=== PATIENT | female | born 1995 ===

== ENCOUNTER 2018-09-23 16:27 | Emergency (ER) | payer MEDICAID, OTHER ==
[~2018-09-23] VITALS: Ht 160 cm; Wt 69.4 kg
--- NOTE | 2018-09-23 16:43 | NUR ---
PT TRANSFERED TO [facility] IN STABLE CONDITION.
--- NOTE | 2018-09-23 16:43 | NUR ---
Ezequiel hand in [facility] - 09/23/18 at 1644 by MONICO PT TRANSFERED TO [facility] IN STABLE CONDITION.
[2018-09-23 16:45] LABS: *BILIRUBIN,URIN NEGATIVE (NEGATIVE); *BLOOD, URINE 1+ (NEGATIVE); *COLOR,URINE YELLOW (YELLOW); *KETONES,URINE NEGATIVE (NEGATIVE); *PROTEIN,URINE NEGATIVE (NEGATIVE); *UROBILINOGEN,URINE 0.2 E.U./dl (NORMAL); LEUKOCYTE ESTERASE ,URINE NEGATIVE (NEGATIVE); NITRITE, URINE NEGATIVE (NEGATIVE); UGLUCOSE NEGATIVE (NEGATIVE)
[2018-09-23] MEDS ORDERED: IV NORMAL SALINE 1000 ML BAG IV ONE (16:45)
[2018-09-23 16:49] LABS: *URINE HCG, QUAL NEGATIVE (NEGATIVE)
[2018-09-23 16:52] LABS: *CLARITY,URINE SLIGHTLY HAZY (CLEAR)
[2018-09-23 16:53] LABS: BACTERIA,URINE FEW /HPF (NONE SEEN); MUCUS,URINE FEW /LPF (0-FEW); SQUAMOUS EPITHELIAL CELL,UR MODERATE /HPF (NONE SEEN); WBC,URINE 0-3 /HPF (0-3)
[2018-09-23 16:56] LABS: BASOPHILS # (AUTO) 0.1 K/uL (0.0-8.0); BASOPHILS % (AUTO) 1.2 % (0.0-2.0); EOSINOPHILS # (AUTO) 0.2 K/uL (0.0-0.7); EOSINOPHILS % (AUTO) 3.1 % (0.0-7.0); HEMOGLOBIN 13.4 g/dL (10.9-14.3); LYMPHOCYTES # (AUTO) 2.4 K/uL (20.0-40.0); LYMPHOCYTES % (AUTO) 33.6 % (20.5-51.5); MEAN CORPUSCULAR HEMOGLOBIN 31.7 uug (24.7-32.8); MEAN CORPUSCULAR HGB CONC 35 g/dL (32.3-35.6); MEAN CORPUSCULAR VOLUME 90.2 fL (75.5-95.3); MONOCYTES # (AUTO) 0.7 K/uL (2.0-10.0); MONOCYTES % (AUTO) 10.1 % (0.0-11.0); NEUTROPHILS # (AUTO) 3.7 K/uL (1.8-8.9); PLATELET COUNT (AUTO) 240 K/uL (179-408); RED BLOOD CELL COUNT(AUTO) 4.22 MIL/uL (3.63-4.92); WHITE BLOOD COUNT (AUTO) 7.2 K/uL (3.8-11.8)
[2018-09-23 17:07] LABS: CREATININE 0.7 mg/dL (0.6-1.3); POTASSIUM 3.6 mmol/L (3.5-5.1)
[2018-09-23 17:13] LABS: BILIRUBIN,DIRECT 0.2 mg/dL (0.0-0.2); BILIRUBIN,TOTAL 0.9 mg/dL (0.2-1.0); TOTAL PROTEIN, SERUM 8.3 g/dL (6.4-8.2)
--- NOTE | 2018-09-23 17:58 | NUR ---
Patient discharged to home in stable conditon. Written and verbal after care instructions given. Patient verbalizes understanding of instructions.
== END 2018-09-23 18:00 | disposition home or self-care (01) ==
LOC: ER 16:29
DX: R10.31 Right lower quadrant pain (principal); R10.32 Left lower quadrant pain
CPT/HCPCS: 36415; 83690; 84703; 85025; A4663; J7030

== ENCOUNTER 2018-12-14 21:11 | Emergency (ER) | payer OTHER ==
[~2018-12-14] VITALS: Ht 160 cm; Wt 69.4 kg
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
[2018-12-14] MEDS ORDERED: HYDROCODONE/APAP 5-325MG TABLET ONE (21:57)
[2018-12-14] MEDS ORDERED: ONDANSETRON ODT 4 MG TAB.RAPDIS ONE (21:57)
[2018-12-14] MEDS ORDERED: HYDROCODONE/APAP 5-325MG TABLET PO ONE (22:00)
[2018-12-14] MEDS ORDERED: ONDANSETRON ODT 4 MG TAB.RAPDIS SL ONE (22:00)
--- NOTE | 2018-12-14 23:33 | NUR ---
Patient discharged to home in stable conditon. Written and verbal after care instructions given. Patient verbalizes understanding of instructions. Pt ambulated out of ER in steady gait with boyfriend who will drive home. All belongings with pt. VSS. NAD noted.
[2018-12-14 23:34] VITALS: BP 124/89
== END 2018-12-14 23:35 | disposition home or self-care (01) ==
LOC: ER 21:13
DX: S06.0X0A Concussion without loss of consciousness, initial encounter (principal); V49.9XXA Car occupant (driver) (passenger) injured in unspecified traffic accident, initial encounter; Y93.89 Activity, other specified; Y92.89 Other specified places as the place of occurrence of the external cause; Y99.8 Other external cause status
CPT/HCPCS: 70450; A4663; Q0162

== ENCOUNTER 2019-06-29 10:45 | Emergency (ER) | payer OTHER ==
[~2019-06-29] VITALS: Ht 160 cm; Wt 70.8 kg
--- NOTE | 2019-06-29 10:47 | NUR ---
VANDANA MAHARAJ AT BEDSIDE FOR MSE.
[2019-06-29 10:59] LABS: *BILIRUBIN,URIN NEGATIVE (NEGATIVE); *BLOOD, URINE 3+ (NEGATIVE); *CLARITY,URINE CLEAR (CLEAR); *COLOR,URINE Orange (YELLOW); *KETONES,URINE NEGATIVE (NEGATIVE); LEUKOCYTE ESTERASE ,URINE TRACE (NEGATIVE); NITRITE, URINE POSITIVE (NEGATIVE); PH,URINE 7.5 (5.0-8.0); UGLUCOSE TRACE (NEGATIVE)
--- NOTE | 2019-06-29 10:59 | NUR ---
Patient discharged to home in stable conditon. Written and verbal after care instructions given. Patient verbalizes understanding of instructions. [facility] [place] W/ PT.
[2019-06-29 11:00] VITALS: BP 123/58
[2019-06-29 11:02] LABS: *URINE HCG, QUAL NEGATIVE (NEGATIVE)
[2019-06-29 11:08] LABS: RBC,URINE TNTC /HPF (0-3)
[2019-06-29 11:09] LABS: WBC,URINE 20-50 /HPF (0-3)
[2019-06-29 11:10] LABS: BACTERIA,URINE FEW /HPF (NONE SEEN)
[2019-06-29 11:11] LABS: MUCUS,URINE FEW /LPF (0-FEW); SQUAMOUS EPITHELIAL CELL,UR MODERATE /HPF (NONE SEEN)
== END 2019-06-29 11:03 | disposition home or self-care (01) ==
LOC: ER 10:45
DX: N39.0 Urinary tract infection, site not specified (principal)
CPT/HCPCS: 84703; 87086; A4663

== ENCOUNTER 2022-10-20 11:46 | Emergency (ER) | payer OTHER ==
[~2022-10-20] VITALS: Ht 160 cm; Wt 73.5 kg
[2022-10-20] MEDS ORDERED: PROCHLORPERAZINE EDISYLATE 10 MG/2 ML VIAL IV ONE (12:15)
[2022-10-20] MEDS ORDERED: KETOROLAC TROMETHAMINE 30 MG INJ IVP ONE (12:15)
[2022-10-20] MEDS ORDERED: IV NORMAL SALINE 1000 ML BAG IV ONE (12:15)
[2022-10-20] MEDS ORDERED: PROCHLORPERAZINE EDISYLATE 10 MG/2 ML VIAL ONE (12:58)
[2022-10-20] MEDS ORDERED: KETOROLAC TROMETHAMINE 30 MG INJ ONE (12:58)
--- NOTE | 2022-10-20 13:54 | NUR ---
Pt resting in gurney with no s/s of distress noted, pending CT.
[2022-10-20] MEDS ORDERED: ONDA4TAB11 PO (14:06)
[2022-10-20] MEDS ORDERED: NAPR-1009 PO (14:06)
--- NOTE | 2022-10-20 14:28 | NUR ---
Patient discharged to home in stable condition. Written and verbal after care instructions given. Patient verbalizes understanding of instructions. Stressed follow up or return to ER for worsening s/s.
== END 2022-10-20 14:29 | disposition home or self-care (01) ==
LOC: ER 11:55
DX: R51.9 Headache, unspecified (principal)
CPT/HCPCS: 99284; 96374; 70450; 96361; 96375; J1885; J0780; J7040; A4663